=== PATIENT | female | born 1935 | race Two or more races ===

== ENCOUNTER 2018-09-30 06:24 | Day surgery (SDC) | payer OTHER ==
[~2018-09-30] VITALS: Ht 154.9 cm; Wt 43.1 kg
[~2018-09-30 06:24] MED LIST: PROTONIX20 MG PO; SENTRALINE PO
[2018-09-30] MEDS ORDERED: RECTICARE30 GM TOP (10:08)
[2018-09-30] MEDS ORDERED: ULTRACET PO (10:08)
== END 2018-09-30 14:05 | disposition home or self-care (01) ==
LOC: CIR.AMB 06:24
DX: D12.8 Benign neoplasm of rectum (principal)